=== PATIENT | female | born 1960 | race Caucasian/White ===

== ENCOUNTER 2017-12-09 19:06 | Inpatient (IN) ==
[2017-12-09] MEDS ORDERED: Ipratropium/Albuterol Neb 3 ML IH ONE (19:48)
[2017-12-09] MEDS ORDERED: 0.9 % Sodium Chloride 1,000 ML IVC ONE (19:48)
--- NOTE | 2017-12-09 19:54 | Emergency Department Note ---
Disposition Clinical Impression: Hypokalemia, Hyponatremia Pneumonia Qualifiers: Pneumonia type: due to unspecified organism Laterality: right Lung location: lower lobe of lung Qualified Code(s): J18.1 - Lobar pneumonia, unspecified organism Disposition: Admitted As Inpatient Condition: Good General Adult HPI - General Chief complaint: ED Shortness of Breath/Dyspnea Stated complaint: ANANTH Time Seen by Provider: 12/09/17 19:12 Source: patient Limitations: no limitations Nursing Notes Reviewed: Yes Vital Signs Reviewed: Yes - History of Present Illness HPI Narrative: Patient presents emergency department today for evaluation of right shoulder plain that has been going on for approximately 1 week. Patient presents today to the emergency department for evaluation of shortness breath that started several hours prior to arrival. Patient describes chest pain is worse with inspiration. Her symptoms are similar to previous pneumonia that she had in the past. Patient states that she had a recent had outpatient surgery approximately a month ago. Patient has also had associated nausea without vomiting. Was told that she might have gallbladder problems in the future. She does have associated wheezing to the right side of her chest as well as tenderness to the right upper quadrant of her abdomen. Patient is tachycardic in the 120s on initial evaluation with tachypnea of 28. Patient will undergo further evaluation of right shoulder pain shortness of breath from both a chest pain, infectious, abdominal etiology standpoint. Pain Scale: 10 - Related Data Home Medications Medication Instructions Recorded Confirmed BuPROPion XL (24 HR) [Wellbutrin 300 mg PO HS 03/12/15 10/01/17 Xl] Duloxetine HCl [Cymbalta] 60 mg PO HS 03/12/15 10/01/17 Estrogens, Conjugated [Premarin] 0.625 mg PO QAM 03/12/15 10/01/17 Gabapentin [Neurontin] 300 mg PO HS 03/12/15 10/01/17 L.acidoph,Paracasei, B.lactis 1 cap PO HS 03/12/15 10/01/17 [Probiotic] Montelukast [Singulair] 10 mg PO HS 03/12/15 10/01/17 Omeprazole [PriLOSEC] 20 mg PO HS 03/12/15 10/01/17 Tizanidine HCl [Zanaflex] 4 mg PO BID 03/12/15 10/01/17 Topiramate [Topamax] 50 mg PO QAM 03/12/15 10/01/17 traZODone [TraZODone] 50 mg PO HS 03/12/15 10/01/17 Allergies Allergy/AdvReac Type Severity Reaction Status Date / Time Amoxicillin Allergy See Verified 03/12/15 13:07 Comments sulfamethoxazole Allergy See Verified 03/12/15 13:07 [From Bactrim] Comments trimethoprim [From Bactrim] Allergy See Verified 03/12/15 13:07 Comments Review of Systems: CONSTITUTIONAL: Weakness and fatigue No weight loss, fever, chills HEENT: Eyes: No visual changes. Ears, Nose, Throat: No hearing loss, difficulty talking or unable to swallow. SKIN: No rash or itching. CARDIOVASCULAR: Chest pain described as sharp and radiating to the back to the right shoulder RESPIRATORY: Shortness of breath associated chronic cough without sputum production. GASTROINTESTINAL: Nausea without vomiting GENITOURINARY: No burning on urination or hematuria. NEUROLOGICAL: No headache, dizziness, syncope, paralysis, ataxia, numbness or tingling in the extremities. No change in bowel or bladder control. MUSCULOSKELETAL: No muscle pain, back pain, joint pain or stiffness. Past Medical History - Past Medical History Medical history: Reports: arthritis, GERD, hyperlipidemia, migraine, other Surgical history: Reports: hysterectomy, other Psychiatric history: Reports: anxiety, depression - Social History Smoking Status: Current every day smoker Smokeless Tobacco Status: No Alcohol use: Reports: occasionally Drug use: Reports: none Physical Exam General: Well appearing, nontoxic, no acute distress Head: Normocephalic Atraumatic Eyes: PERRL, EOMI ENT: Airway patent, no stridor Neck: supple, Chest: Wheezing to the right side of her chest Cardiac: Regular rate and rhythm, no murmurs, rubs or gallops Abdomen: soft, moderate tenderness to the right upper quadrant., nondistended; no guarding, rebound, or tenderness to percussion Musculoskeletal: Calves symmetric, nontender, no palpable cord Skin: No rash, normal skin tone Neuro: Alert and Oriented to person, place, and time; No focal deficit - General Limitations: no limitations General appearance: alert, in no apparent distress Course - Reevaluation(s) Reevaluation #1: Agents heart rate has improved with fluids. Chest x-ray concerning for atelectasis but has significant changes associated with her x-ray. This time because of the procedure approximately one month ago and the rather sudden onset of symptoms and her tachycardia we did do a PE study. PCP that he is negative for pulmonary embolism. Does show concern for bronchogenic carcinoma. The patient did start smoking at age 51 secondary to a bad divorce. Patient has no other long history or risk factors. The patient does have an elevated white count and concern for pneumonia. Patient has not had any overnight stays within the hospital within the last 3 months. Ceftriaxone and azithromycin given. A letter ultrasound is negative. Mild white abnormalities. Patient will be admitted for further management and workup. - Consultations Consultation #1: Discussed with hospitalist. Patient except for admission Vital Signs Temperature 99.6 F 12/09/17 19:21 Pulse Rate 117 12/09/17 19:21 Respiratory Rate 22 12/09/17 19:21 Blood Pressure 141/86 12/09/17 19:21 O2 Sat by Pulse Oximetry 98 12/09/17 19:21 Temperature 99.6 F 12/09/17 19:30 Pulse Rate 117 12/09/17 23:00 Respiratory Rate 22 12/09/17 23:00 Blood Pressure 129/90 12/09/17 23:00 O2 Sat by Pulse Oximetry 97 12/09/17 23:00 Oxygen Delivery Oxygen Delivery Room Air Medical Decision Making - Medical Records Medical records reviewed: Yes I reviewed the patient's medical records. - Lab Data Lab results reviewed: Yes I reviewed the patient's lab results. Result diagrams: 12/09/17 19:47 12/09/17 19:47 Lab Results 12/09/17 12/09/17 12/09/17 Range/Units 19:47 19:47 19:47 WBC 18.2 H (4.3-11.1) K/mcL RBC 3.51 L (3.82-4.97) M/mcL Hgb 8.1 L (11.5-15.4) g/dL Hct 26.6 L (35.3-44.9) % MCV 75.8 L (83.0-100.0) fL MCH 23.1 L (28.0-33.3) pg MCHC 30.5 L (31.6-35.5) g/dL RDW 18.6 H (11.5-14.5) % Plt Count 495 H (140-400) K/mcL MPV 8.3 L (9.4-12.4) fL Immature Gran % 0.7 (0-4) % Seg Neutrophils % 77.6 % Lymphocytes % 11.2 % Monocytes % 9.6 % Eosinophils % 0.7 % Basophils % 0.2 % Neutrophils # 14.2 H (1.6-8.9) K/mcL Lymphocytes # 2.1 (0.6-4.6) K/mcL Monocytes # 1.8 H (0.0-1.3) K/mcL Eosinophils # 0.1 (0.0-0.6) K/mcL Basophils # 0.0 (0.0-0.2) K/mcL Sodium 125 L (136-145) mEq/L Potassium 3.1 L (3.5-5.1) mEq/L Chloride 95 L (98-107) mEq/L Carbon Dioxide 18 L (23-29) mEq/L BUN 11 (6-20) mg/dL Creatinine 1.03 (0.60-1.20) mg/dL Est GFR ( Amer) > 60 (> 60) Est GFR (Non-Af Amer) 55 L (> 60) BUN/Creatinine Ratio 11 (6-26) Glucose 114 H (70-105) mg/dL Calculated Osmolality 260 L (280-300) Lactic Acid (0.5-2.2) mmol/L Calcium 8.6 (8.6-10.3) mg/dL Total Bilirubin (0.3-1.0) mg/dL Direct Bilirubin (0.0-0.2) mg/dL Indirect Bilirubin (0.0-1.2) mg/dL AST (13-39) Units/L ALT (7-52) Units/L Alkaline Phosphatase (34-104) Units/L Troponin I < 0.03 (< 0.04) ng/mL B-Natriuretic Peptide 118 H (Less than 100) pg/mL Serum Total Protein (6.4-8.9) g/dL Albumin (3.5-5.7) g/dL Globulin (2.4-3.5) g/dL Albumin/Globulin Ratio (1.1-2.2) Lipase (11-82) Units/L 12/09/17 12/09/17 Range/Units 19:47 20:10 WBC (4.3-11.1) K/mcL RBC (3.82-4.97) M/mcL Hgb (11.5-15.4) g/dL Hct (35.3-44.9) % MCV (83.0-100.0) fL MCH (28.0-33.3) pg MCHC (31.6-35.5) g/dL RDW (11.5-14.5) % Plt Count (140-400) K/mcL MPV (9.4-12.4) fL Immature Gran % (0-4) % Seg Neutrophils % % Lymphocytes % % Monocytes % % Eosinophils % % Basophils % % Neutrophils # (1.6-8.9) K/mcL Lymphocytes # (0.6-4.6) K/mcL Monocytes # (0.0-1.3) K/mcL Eosinophils # (0.0-0.6) K/mcL Basophils # (0.0-0.2) K/mcL Sodium (136-145) mEq/L Potassium (3.5-5.1) mEq/L Chloride (98-107) mEq/L Carbon Dioxide (23-29) mEq/L BUN (6-20) mg/dL Creatinine (0.60-1.20) mg/dL Est GFR ( Amer) (> 60) Est GFR (Non-Af Amer) (> 60) BUN/Creatinine Ratio (6-26) Glucose (70-105) mg/dL Calculated Osmolality (280-300) Lactic Acid 0.7 (0.5-2.2) mmol/L Calcium (8.6-10.3) mg/dL Total Bilirubin 0.3 (0.3-1.0) mg/dL Direct Bilirubin 0.1 (0.0-0.2) mg/dL Indirect Bilirubin 0.2 (0.0-1.2) mg/dL AST 8 L (13-39) Units/L ALT 7 (7-52) Units/L Alkaline Phosphatase 127 H (34-104) Units/L Troponin I (< 0.04) ng/mL B-Natriuretic Peptide (Less than 100) pg/mL Serum Total Protein 6.8 (6.4-8.9) g/dL Albumin 3.5 (3.5-5.7) g/dL Globulin 3.3 (2.4-3.5) g/dL Albumin/Globulin Ratio 1.1 (1.1-2.2) Lipase 3 L (11-82) Units/L - Radiology Data Radiology results reviewed: Yes I reviewed the patient's radiology results. - EKG Data EKG #1 EKG attestation: Yes I reviewed and interpreted this EKG. EKG results narrative: Sinus tachycardia with heart rate of 120. MD interval 151. QRS 91. QTC 436. Patient has no significant ST elevations or depressions.
[2017-12-09 20:07] LABS: Basophils % 0.2 %; Eosinophils # 0.1 K/mcL (0.0-0.6); Eosinophils % 0.7 %; Hematocrit 26.6 % (35.3-44.9); Hemoglobin 8.1 g/dL (11.5-15.4); Immature Granulocytes % 0.7 % (0-4); Lymphocytes # 2.1 K/mcL (0.6-4.6); Lymphocytes % 11.2 %; Mean Corpuscular HGB Conc 30.5 g/dL (31.6-35.5); Mean Corpuscular Hemoglobin 23.1 pg (28.0-33.3); Mean Corpuscular Volume 75.8 fL (83.0-100.0); Mean Platelet Volume 8.3 fL (9.4-12.4); Monocytes # 1.8 K/mcL (0.0-1.3); Monocytes % 9.6 %; Neutrophils # 14.2 K/mcL (1.6-8.9); Platelet Count 495 K/mcL (140-400); Red Blood Count 3.51 M/mcL (3.82-4.97); Red Cell Distribution Width 18.6 % (11.5-14.5); Segmented Neutrophils % 77.6 %
[2017-12-09 20:27] LABS: Albumin 3.5 g/dL (3.5-5.7); Albumin/Globulin Ratio 1.1 (1.1-2.2); Bilirubin,Direct 0.1 mg/dL (0.0-0.2); Bilirubin,Indirect 0.2 mg/dL (0.0-1.2); Bilirubin,Total 0.3 mg/dL (0.3-1.0); Globulin 3.3 g/dL (2.4-3.5); Total Protein 6.8 g/dL (6.4-8.9)
[2017-12-09 20:29] LABS: BUN/Creatinine Ratio 11 (6-26); Blood Urea Nitrogen 11 mg/dL (6-20); Calcium 8.6 mg/dL (8.6-10.3); Carbon Dioxide 18 mEq/L (23-29); Chloride 95 mEq/L (98-107); Glucose 114 mg/dL (70-105); Osmolality,Calculated 260 (280-300); Potassium 3.1 mEq/L (3.5-5.1); Sodium 125 mEq/L (136-145); Troponin I < 0.03 ng/mL (< 0.04); eGFR For Non-African Americans 55 (> 60)
[2017-12-09] MEDS ORDERED: Isovue-370 500 ML INFUS..BTL IV ONE (20:48)
[2017-12-09] MEDS ORDERED: cefTRIAXone 1,000 MG in Water for inj. (sterile) 20 ML 10 ML IVP STA (22:24)
[2017-12-09] MEDS ORDERED: Azithromycin 500 MG in D5% in Water 250 ML IVPB STA (22:24)
[2017-12-09] MEDS ORDERED: *HR* LORazepam 2 MG/ML VIAL IVP ONE (23:48)
[2017-12-10] MEDS ORDERED: Naloxone 0.4 MG/ML INJ IVP PRN (02:29)
[2017-12-10] MEDS ORDERED: Ipratropium/Albuterol Neb 3 ML IH PRN (03:08)
--- NOTE | 2017-12-10 03:21 | Internal Med History&Physical ---
Date of Encounter: 12/10/17 Time of Encounter: 01:45 Internal Medicine - H&P: HPI Chief complaint: Pneumonia, bronchiogenic carcinoma Admitted From: Emergency Dept Plans for Post Hospital Care: Home History of present illness: Ms. Dhillon is a 57 year old female Patient presented to the ER with a 1 week history of right shoulder pain with inhalation. She states that she also developed some right upper quadrant pain as well. She says that this pain is similar to pain she had a few years ago when she was diagnosed with pneumonia. She has a history of chronic pain and multiple back surgeries and has a morphine pain pump in place. Despite this, patient's pain continued and she came to the emergency room for further evaluation. In the emergency room patient's CBC showed a white count of 18.2, hemoglobin of 8.1 BMP showed a sodium of 125, potassium 3.1. Patient's lactate was 0.7 and troponins were undetectable. Chest x-ray showed right and middle lobe opacities and possible developing pneumonia. 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 Due to her right upper quadrant pain a gallbladder ultrasound was performed which revealed sludge in the gallbladder. Blood cultures were drawn and she was started on ceftriaxone and azithromycin. She is also given 1 L bolus of IV fluids and admitted to the hospital for further management. Upon my assessment patient has difficulty with deep inhalation as it causes her pain. She states that she recently started smoking about 6 years ago but is now motivated to quit. She has had nausea and vomiting particularly with eating , chest pain with inhalation as well as pain in her right upper quadrant. She denies diarrhea and constipation. Past Med Surg Social Fam HX - Past Medical History Medical history: arthritis, GERD, hyperlipidemia, migraine, other Additional medical history: STARTED SMOKING CIGARETTES @51 YRS OLD (STATES "[employer]"). DAILY MARIJUANA. HOLA. PUD. Vasculitis. H Pylori Gastritis. 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 Anxiety. Depression. Gluten allergy. Pneu Psychiatric history: anxiety, depression - Past Surgical History Surgical History: hysterectomy, other Additional surgical history: Gastric Bypass 2003. Hysterectomy and tummy tuck 2005. breast lifted 2005. skin removed 2005. left ear sx 2005. back surgery. 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 back sx L4-L5 with screws/plate and then removed 2010. bladder 2010. pain pump 2012. back sx 2012 - Social History Smoking Status: Current every day smoker Smokeless Tobacco Status: No Alcohol use: occasionally Drug use: none - Family History Mother Living Status: Hx Family Cardiac Disorders: Yes Hx Family Respiratory Disorders: No Hx Family Cancer: Yes (skin) Hx Family GI Disorders: Yes Hx Family Endocrine Disorder: Yes Hx Family Neuromuscular Disorders: No Hx Family Neurologic Disorders: Yes Hx Family HEENT Disorders: No Hx Family Autoimmune Disorders: No Father Living Status: Still Living Hx Family Cardiac Disorders: Yes Hx Family Respiratory Disorders: No Hx Family Cancer: Yes (Prostate and skin ca) Hx Family GI Disorders: No Hx Family Endocrine Disorder: No Hx Family Neuromuscular Disorders: No Hx Family HEENT Disorders: No Hx Family Autoimmune Disorders: No Internal Medicine - H&P: Meds BuPROPion XL (24 HR) [Wellbutrin Xl] 300 mg PO HS 03/12/15 [History] Duloxetine HCl [Cymbalta] 60 mg PO HS 03/12/15 [History] Estrogens, Conjugated [Premarin] 0.625 mg PO QAM 03/12/15 [History] Gabapentin [Neurontin] 300 mg PO HS 03/12/15 [History] L.acidoph,Paracasei, B.lactis [Probiotic] 1 cap PO HS 03/12/15 [History] Montelukast [Singulair] 10 mg PO HS 03/12/15 [History] Omeprazole [PriLOSEC] 20 mg PO HS 03/12/15 [History] Tizanidine HCl [Zanaflex] 4 mg PO BID 03/12/15 [History] Topiramate [Topamax] 50 mg PO QAM 03/12/15 [History] traZODone [TraZODone] 50 mg PO HS 03/12/15 [History] 3 Allergy/AdvReac Type Severity Reaction Status Date / Time Amoxicillin Allergy See Verified 03/12/15 13:07 Comments sulfamethoxazole Allergy See Verified 03/12/15 13:07 [From Bactrim] Comments trimethoprim [From Bactrim] Allergy See Verified 03/12/15 13:07 Comments All Systems PM: A 10-system review of systems was performed and is negative for pertinent findings except as documented above in the HPI. - Constitutional Vitals: Temp Pulse Resp BP Pulse Ox 98.8 F 123 18 133/86 97 12/10/17 00:30 12/10/17 00:30 12/10/17 00:30 12/10/17 00:30 12/10/17 00:30 General appearance: Present: cooperative, mild distress, A&O X 3, answers questions appropriately Exam: As above - Head Head exam: Present: normal inspection - Eye Eye exam: Present: EOMI, normal appearance - Respiratory Respiratory exam: Present: rales. Absent: chest wall tenderness, decreased breath sounds, CTAB, wheezes Additional comments: Patient unable to take deep breaths due to pain - Cardiovascular Cardiovascular exam: Present: RRR, tachycardia. Absent: diastolic murmur, systolic murmur - GI/Abdominal GI/Abdominal exam: Present: normal bowel sounds, soft, tenderness Additional comments: Right upper quadrant tenderness - Extremities Exam Extremities exam: Present: warm, radial pulses palpable and symmetrical. Absent : calf tenderness, pedal edema, tenderness - Neurological Exam Neurological exam: Present: no focal deficits, strengths equal and symetr throughout. 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 Patient has difficulty with deep inspiration and physical exam was difficult due to pain. Continue to monitor oxygen status Continue ceftriaxone and azithromycin Follow up blood cultures Pulmonary consult in AM, appreciate recommendations. Qualifiers: Laterality: right Lung location: middle lobe of lung Qualified Code(s): J18.1 - Lobar pneumonia, unspecified organism (2) Lung mass Current Visit: Yes Status: Acute Assessment and plan: As seen on patient's CT angio, patient has concerning primary bronchogenic carcinoma at right hilum. Pulmonary consult in AM, appreciate recommendations. Treating for pneumonia as above. (3) Anemia Current Visit: Yes Status: Acute Assessment and plan: Patient's hemoglobin was 8.1 in the ER, previously in September her hemoglobin was 8.6. Patient denies history of anemia. No obvious signs of bleeding. Iron studies Type and screen Transfuse if patient's hemoglobin continues to drop. Repeat labs in AM. Qualifiers: Anemia type: unspecified type Qualified Code(s): D64.9 - Anemia, unspecified (4) Sludge in gallbladder Current Visit: Yes Status: Acute Assessment and plan: As seen on ultrasound. Patient has right upper quadrant pain, but during exam with ultrasound she did not demonstrate positive Steinberg's sign. Patient states that pain would be worse with eating. Could be related to cholecystitis. Continue to monitor Consider surgery consult once evaluated by pulmonology for her lung mass. NPO (5) Dyspnea Current Visit: No Status: Resolved Assessment and plan: Likely secondary to lung mass and pneumonia. Bedside pulse ox Oxygen supplementation as needed. Qualifiers: Dyspnea type: shortness of breath Qualified Code(s): R06.02 - Shortness of breath; R06.00 - Dyspnea, unspecified; R06.01 - Orthopnea (6) Chronic pain Current Visit: No Status: Chronic Assessment and plan: Patient has a morphine pain pump. Qualifiers: Chronic pain type: other chronic postprocedural pain Qualified Code(s): G89.28 - Other chronic postprocedural pain (7) Tobacco abuse Current Visit: No Status: Resolved Assessment and plan: Patent states that she is motivated to quit. Declined nicotine patch. (8) Hypokalemia Current Visit: Yes Status: Acute Assessment and plan: Supplement with 40mEq of KCl Recheck labs in AM. (9) Hyponatremia Current Visit: Yes Status: Acute Assessment and plan: Patient received dose of IV fluids in ER. Recheck labs in the morning Will monitor to ensure not to raise sodium too quickly. (10) DVT prophylaxis Current Visit: Yes Status: Acute Assessment and plan: SCDs - Time Spent With Patient Total time spent is greater than 50% in coordination of care (as documented) at patient's floor/unit and/or counseling patient: Greater than 35 minutes
[2017-12-10] MEDS ORDERED: Potassium Chloride 40 MEQ, Lidocaine 1% 2 ML in D5% in Water 500 ML IVPB ONE (03:30)
[2017-12-10 05:51] LABS: Hematocrit 25.5 % (35.3-44.9); Hemoglobin 7.9 g/dL (11.5-15.4); Mean Corpuscular Hemoglobin 23.4 pg (28.0-33.3); Mean Corpuscular Volume 75.4 fL (83.0-100.0); Mean Platelet Volume 8.2 fL (9.4-12.4); Platelet Count 455 K/mcL (140-400); Red Blood Count 3.38 M/mcL (3.82-4.97); Red Cell Distribution Width 18.5 % (11.5-14.5)
[2017-12-10 06:10] LABS: BUN/Creatinine Ratio 8 (6-26); Blood Urea Nitrogen 6 mg/dL (6-20); Calcium 8.4 mg/dL (8.6-10.3); Carbon Dioxide 23 mEq/L (23-29); Chloride 97 mEq/L (98-107); Glucose 153 mg/dL (70-105); Osmolality,Calculated 267 (280-300); Potassium 3.5 mEq/L (3.5-5.1); Sodium 128 mEq/L (136-145); eGFR For Non-African Americans > 60 (> 60)
--- NOTE | 2017-12-10 06:46 | Pulmonology Consult Note ---
Date of Encounter: 12/10/17 Time of Encounter: 06:45 Assessment and Plan (1) Pneumonia Current Visit: Yes Status: Acute I would treat for community acquired organisms send sputum and blood cultures and obtain urine Legionella and strep pneumo antigen along with a respiratory infection panel Schedule bronchodilators (duo nebs) every 6 hours with every hourly albuterol as needed IV steroids Solu-Medrol 40 mg every 8 for the next 24-48 hours Plan for treatment for antimicrobials seven-day days based upon clinical response Qualifiers: Pneumonia type: due to unspecified organism Laterality: right Lung location: unspecified part of lung Qualified Code(s): J18.9 - Pneumonia, unspecified organism (2) Chronic pain Current Visit: No Status: Chronic Patient has acute on chronic pain in large part pleuritic chest pain related to pneumonia also suffers from chronic back pain I given her a one-time dose of narcotic and she says she responds to acetaminophen as well which for to primary team for management of this and also rechallenge to her primary pain physician to give recommendations for pain pump Qualifiers: Chronic pain type: other chronic postprocedural pain Qualified Code(s): G89.28 - Other chronic postprocedural pain (3) Lung mass Current Visit: Yes Status: Acute This is concerning for primary lung met malignancy I would favor treating pneumonia over the weekend if patient remains in patient over the weekend as she could likely be a candidate for bronchoscopy with endobronchial ultrasound in the early part of this upcoming week given how short of breath she is how much pain and tachycardic she is not an ideal candidate at this time (4) Tachycardia Current Visit: Yes Status: Acute This is multifactorial and appears sinus secondary to pain anxiety and infection. Treat pain and anxiety as above and given a 1 time bolus of lactated Ringer's. Continue to monitor on telemetry Thank you for the consultation pulmonary will continue to follow (5) Tobacco abuse Current Visit: No Status: Resolved Tobacco cessation counseling given (6) DVT prophylaxis Current Visit: Yes Status: Acute Chemical DVT prophylaxis unless contraindication arises History of Present Illness Consult date: 12/10/17 Requesting physician: Modesto Carlson Reason for consult: abnormal CXR/CT Chief complaint: Difficulty in Breathing History of present illness: This is a pleasant 57-year-old woman who presented to emergency room yesterday for shoulder pain for approximately a week Joses developed shortness of breath that started a few hours prior to arrival along with chest pain and pleuritic type chest pain that is worse with inspiration. She has had pneumonia in the past and is similar symptoms she experienced previously. She was then noted to be tachycardic to the 120s and tachypnea Greater than 26 in the emergency room the patient had a CTA performed in the emergency room which was negative for filling defect but there was a confluent soft tissue opacity at the right hilum contiguous with airspace disease in the middle lobe and right lower lobe secondary to occlusion of the airways this was all concerning for bronchogenic carcinoma in the pulmonary service was consulted for further evaluation of this. Patient is a current smoker but says she started smoking at age of 51 after a difficult divorce she smoked up to 2 packs a day and now is down to 1 no family history of lung malignancy no personal history of cancer in any form. 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 Complaining again of the shoulder pain with very severe difficulty with inspiration especially when she is trying to urinate noted to be tachycardic the 120s although sinus today blood pressure is been stable She does suffer from chronic back pain and some number of surgeries in the past for this fact has an indwelling pain pump. Past Med Surg Social Fam HX - Past Medical History Medical history: arthritis, GERD, hyperlipidemia, migraine, other Additional medical history: STARTED SMOKING CIGARETTES @51 YRS OLD (STATES "BAD DIVORCE"). DAILY MARIJUANA. HOLA. PUD. Vasculitis. H Pylori Gastritis. 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 Anxiety. Depression. Gluten allergy. Pneu Psychiatric history: anxiety, depression - Past Surgical History Surgical History: hysterectomy, other Additional surgical history: Gastric Bypass 2004. Hysterectomy and tummy tuck 2006. breast lifted 2005. skin removed 2005. left ear sx 2005. back surgery. 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 back sx L4-L5 with screws/plate and then removed 2010. bladder 2010. pain pump 2012. back sx 2012 - Social History Smoking Status: Current every day smoker Smokeless Tobacco Status: No Alcohol use: occasionally Drug use: none - Family History Mother Living Status: Hx Family Cardiac Disorders: Yes Hx Family Respiratory Disorders: No Hx Family Cancer: Yes (skin) Hx Family GI Disorders: Yes Hx Family Endocrine Disorder: Yes Hx Family Neuromuscular Disorders: No Hx Family Neurologic Disorders: Yes Hx Family HEENT Disorders: No Hx Family Autoimmune Disorders: No Father Living Status: Still Living Hx Family Cardiac Disorders: Yes Hx Family Respiratory Disorders: No Hx Family Cancer: Yes (Prostate and skin ca) Hx Family GI Disorders: No Hx Family Endocrine Disorder: No Hx Family Neuromuscular Disorders: No Hx Family HEENT Disorders: No Hx Family Autoimmune Disorders: No Medications and Allergies BuPROPion XL (24 HR) [Wellbutrin Xl] 300 mg PO HS 03/12/15 [History] Duloxetine HCl [Cymbalta] 60 mg PO HS 03/12/15 [History] Estrogens, Conjugated [Premarin] 0.625 mg PO QAM 03/12/15 [History] Gabapentin [Neurontin] 300 mg PO HS 03/12/15 [History] L.acidoph,Paracasei, B.lactis [Probiotic] 1 cap PO HS 03/12/15 [History] Montelukast [Singulair] 10 mg PO HS 03/12/15 [History] Omeprazole [PriLOSEC] 20 mg PO HS 03/12/15 [History] Tizanidine HCl [Zanaflex] 4 mg PO BID 03/12/15 [History] Topiramate [Topamax] 50 mg PO QAM 03/12/15 [History] traZODone [TraZODone] 50 mg PO HS 03/12/15 [History] DULoxetine [Cymbalta] 30 mg PO QAM 12/10/17 [History] Morphine Sulfate/Pf [Morphine IntraThecdal Pump] 7.2 mg IT DAILY 12/10/17 [ History] 3 Allergy/AdvReac Type Severity Reaction Status Date / Time Amoxicillin Allergy See Verified 03/12/15 13:07 Comments sulfamethoxazole Allergy See Verified 03/12/15 13:07 [From Bactrim] Comments trimethoprim [From Bactrim] Allergy See Verified 03/12/15 13:07 Comments All Systems: The remainder of the systems were reviewed and are negative Physical Examination Vital Signs: Vital Signs, Last 4 Hours Temp Pulse Resp BP Pulse Ox 12/10/17 04:35 99.2 F 128 14 144/85 96 General appearance: appears uncomfortable Eyes: nonicteric ENT: oropharynx moist Effort: mildly labored Auscultation: bilateral: diminished breath sounds, wheezes (Faint expiratory wheezes) Cardiovascular: other (Heart rapid rate regular rhythm) Gastrointestinal: normoactive bowel sounds, soft, other (Mild tenderness to deep palpation over the epigastrium) Integumentary: normal Extremities: no cyanosis, no edema Musculoskeletal: no deformities normal mental status, non-focal exam anxious Results - Laboratory Findings CBC and BMP: 12/10/17 05:35 12/10/17 05:35 Abnormal lab findings: Abnormal lab results WBC 16.6 K/mcL (4.3-11.1) H 12/10/17 05:35 RBC 3.38 M/mcL (3.82-4.97) L 12/10/17 05:35 Hgb 7.9 g/dL (11.5-15.4) L 12/10/17 05:35 Hct 25.5 % (35.3-44.9) L 12/10/17 05:35 MCV 75.4 fL (83.0-100.0) L 12/10/17 05:35 MCH 23.4 pg (28.0-33.3) L 12/10/17 05:35 MCHC 31.0 g/dL (31.6-35.5) L 12/10/17 05:35 RDW 18.5 % (11.5-14.5) H 12/10/17 05:35 Plt Count 455 K/mcL (140-400) H 12/10/17 05:35 MPV 8.2 fL (9.4-12.4) L 12/10/17 05:35 Neutrophils # 14.2 K/mcL (1.6-8.9) H 12/09/17 19:47 Monocytes # 1.8 K/mcL (0.0-1.3) H 12/09/17 19:47 Sodium 128 mEq/L (136-145) L 12/10/17 05:35 Chloride 97 mEq/L (98-107) L 12/10/17 05:35 Glucose 153 mg/dL (70-105) H 12/10/17 05:35 POC Glucose 176 mg/dL (70-99) H 12/10/17 05:24 Calculated Osmolality 267 (280-300) L 12/10/17 05:35 Calcium 8.4 mg/dL (8.6-10.3) L 12/10/17 05:35 AST 8 Units/L (13-39) L 12/09/17 19:47 Alkaline Phosphatase 127 Units/L (34-104) H 12/09/17 19:47 B-Natriuretic Peptide 118 pg/mL (Less than 100) H 12/09/17 19:47 Lipase 3 Units/L (11-82) L 12/09/17 19:47 - Diagnostic Findings Chest x-ray: report reviewed, image reviewed CT scan - chest: report reviewed (CTA of the chest), image reviewed - Clinical Findings Intake & Output: Intake & Output 12/09/17 12/09/17 12/10/17 15:59 23:59 07:59 Intake Total 0 / 0 Output Total 400 / 400 Balance -400 / -400 Weight 89.1 kg Consult Discharge Plan - Plan Referrals: Jorden Crandall MD [Primary Care Provider] -
[2017-12-10 07:07] LABS: Ferritin 47 ng/mL (10-120); Iron < 10 mcg/dL (50-170); Transferrin 268 mg/dL (203-362)
[2017-12-10] MEDS: cefTRIAXone 1,000 MG in Water for inj. (sterile) 20 ML 10 ML IVP SCH (07:46)
[2017-12-10] MEDS ORDERED: Ringers Solution, Lactated 1,000 ML IVC ONE (08:24)
[2017-12-10] MEDS ORDERED: Isovue-370 500 ML INFUS..BTL IV ONE (09:11)
--- NOTE | 2017-12-10 09:17 | Internal Med Progress Note ---
Hospitalist Progress Note - Encounter Date of Encounter: 12/10/17 Time of Encounter: 08:10 - Subjective Interval History: Patient complain of right-sided chest pain with taking deep breath or cough, patient complain of diffuse abdominal discomfort more at right lower quadrant area to the extent she cannot take a deep breath. Patient denies any fever or chills, patient denies any nausea or vomiting - Exam Vitals: Temp Pulse Resp BP Pulse Ox 99.8 F H 128 24 150/92 96 12/10/17 07:02 12/10/17 07:02 12/10/17 07:02 12/10/17 07:02 12/10/17 07:02 Exam: Lower extremities No lower extremity edema, no calf tenderness [facility] [place] No spine tenderness, moving all 4 extremities Neurological cranial nerves II-12 grossly intact no focal motor or sensory deficits As above - Summary of Assessment and Plan Summary of Assessment and Plan: With her severe abdominal pain we will order CAT scan abdomen and pelvis rule out any abdominal abscess, with her pleurisy chest pain will add 1 dose of steroid 125 mg then Soluo Medrol 40 mg twice a day . Based on pain management clinic continue morphine pump for now, patient is tachycardic will order 1 L bolus and then IV fluid, with her hyponatremia could be paraneoplastic syndrome. Check serum sodium and serum osmolarity, check urine sodium urine severity, possible secondary to volume depletion with her decrease oral intake, continue IV fluid. Patient is on multiple is SSRI which could be contributing to her hyponatremia . Close monitoring of her sodium, with a aerosol treatment every 4 hours, add Mucinex, check electrolytes next morning, replace phosphorus. Patient has evidence of iron deficiency anemia and anemia of chronic disease, add iron - Time Spent with Patient Total time spent is greater than 50% in coordination of care (as documented) at patient's floor/unit and/or counseling patient: Greater than 35 minutes Plan of Care Discussed with: nurse (Plan discussed was family patient and nurse) Internal Medicine: Result - Labs CBC & Chem 7: 12/10/17 05:35 12/10/17 05:35 Labs: Short CBC 12/10/17 Range/Units 05:35 WBC 16.6 H (4.3-11.1) K/mcL Hgb 7.9 L (11.5-15.4) g/dL Hct 25.5 L (35.3-44.9) % Plt Count 455 H (140-400) K/mcL BMP 12/10/17 05:35 Sodium 128 L Potassium 3.5 Chloride 97 L Carbon Dioxide 23 BUN 6 Creatinine 0.71 Glucose 153 H Calcium 8.4 L Consult Discharge Plan - Plan Referrals: Jorden Crandall MD [Primary Care Provider] - Exam - Vital Signs Vital signs: Initial Vital Signs Temp Pulse Resp BP Pulse Ox 99.6 F 117 22 141/86 98 12/09/17 19:21 12/09/17 19:21 12/09/17 19:21 12/09/17 19:21 12/09/17 19:21 Vital Signs - Last 8 Hours Temp Pulse Resp BP Pulse Ox 12/10/17 11:21 18 95 12/10/17 11:13 98.4 F 117 20 146/85 96 Intake and Output 12/09/17 12/10/17 12/10/17 23:59 07:59 15:59 Other: Meal NPO - General Appearance General appearance: moderate distress EENT: mucous membranes dry Neck: no JVD Cardiology: no murmurs, no rub, no gallops, no edema, rapid rhythm, normal S1, normal S2 Gastrointestinal: normoactive bowel sounds, tenderness (Diffuse abdominal tenderness more at the epigastric area and right upper quadrant area) Neurologic: no focal deficit, no asterixis, alert and oriented x3, reflexes 2+ and symmetric, gait normal, strength 5/5
[2017-12-10 09:21] LABS: Magnesium 1.9 mg/dL (1.6-2.6); Phosphorous 2.6 mg/dL (2.7-4.5)
[2017-12-10] MEDS: Acetaminophen 325 MG TABLET PO PRN ×2 (09:23→15:00)
[2017-12-10 09:46] LABS: Folate 8.3 ng/mL (3.0-16.0)
[2017-12-10] MEDS ORDERED: ISOVUE-370 100 ML INFUS..BTL PO ONE (09:57)
[2017-12-10] MEDS ORDERED: methylPREDNISolone 125 MG/2 ML VIAL IVP ONE (10:30)
[2017-12-10] MEDS: Ipratropium/Albuterol Neb 3 ML IH SCH ×4 (11:18→23:18)
[2017-12-10] MEDS: 0.9 % Sodium Chloride 1,000 ML IVC SCH ×2 (11:53→21:33)
[2017-12-10] MEDS: MethylPREDNISolone 40 MG/ML VIAL IVP SCH (18:00)
[2017-12-10] MEDS ORDERED: BuPROPion XL (24 HR) 150 MG TABLET PO SCH (21:00)
[2017-12-10] MEDS: Gabapentin 300 MG CAPSULE PO SCH (21:34)
[2017-12-10] MEDS: traZODone 50 MG TABLET PO SCH (21:35)
[2017-12-10] MEDS: tiZANidine 4 MG TABLET PO SCH (21:35)
[2017-12-10] MEDS: Azithromycin 500 MG in D5% in Water 250 ML IVPB SCH (23:51)
[2017-12-11] MEDS: Acetaminophen 325 MG TABLET PO PRN ×3 (03:00→16:17)
[2017-12-11] MEDS: Ipratropium/Albuterol Neb 3 ML IH SCH ×6 (04:11→23:46)
[2017-12-11] MEDS: MethylPREDNISolone 40 MG/ML VIAL IVP SCH ×2 (05:53→17:51)
[2017-12-11] MEDS: 0.9 % Sodium Chloride 1,000 ML IVC SCH ×3 (08:05→16:17)
[2017-12-11] MEDS: cefTRIAXone 1,000 MG in Water for inj. (sterile) 20 ML 10 ML IVP SCH (09:16)
[2017-12-11] MEDS: tiZANidine 4 MG TABLET PO SCH ×2 (09:17→21:16)
[2017-12-11] MEDS: Topiramate 25 MG TABLET PO SCH (09:18)
[2017-12-11] MEDS: MORPHINE SULFATE IT SCH (09:22)
[2017-12-11 09:59] LABS: Basophils % 0.1 %; Hematocrit 24.5 % (35.3-44.9); Hemoglobin 7.5 g/dL (11.5-15.4); Immature Granulocytes % 1.6 % (0-4); Lymphocytes # 1.1 K/mcL (0.6-4.6); Lymphocytes % 6.2 %; Mean Corpuscular HGB Conc 30.6 g/dL (31.6-35.5); Mean Corpuscular Hemoglobin 23.4 pg (28.0-33.3); Mean Corpuscular Volume 76.6 fL (83.0-100.0); Mean Platelet Volume 8.6 fL (9.4-12.4); Monocytes # 0.7 K/mcL (0.0-1.3); Neutrophils # 15.9 K/mcL (1.6-8.9); Nucleated Red Blood Cells 0.1 /100 WBC (0); Platelet Count 492 K/mcL (140-400); Red Cell Distribution Width 18.5 % (11.5-14.5); Segmented Neutrophils % 88.1 %
[2017-12-11 10:27] LABS: Alanine Aminotransferase 5 Units/L (7-52); Albumin 2.9 g/dL (3.5-5.7); Alkaline Phosphatase 108 Units/L (34-104); Amylase < 10 Units/L (29-103); Aspartate Amino Transferase 5 Units/L (13-39); BUN/Creatinine Ratio 14 (6-26); Bilirubin,Total 0.2 mg/dL (0.3-1.0); Blood Urea Nitrogen 9 mg/dL (6-20); Calcium 8.6 mg/dL (8.6-10.3); Carbon Dioxide 23 mEq/L (23-29); Chloride 99 mEq/L (98-107); Glucose 200 mg/dL (70-105); Lipase < 3 Units/L (11-82); Magnesium 1.9 mg/dL (1.6-2.6); Osmolality,Calculated 270 (280-300); Phosphorous 2.7 mg/dL (2.7-4.5); Potassium 3.3 mEq/L (3.5-5.1); Sodium 128 mEq/L (136-145); Total Protein 5.9 g/dL (6.4-8.9); eGFR For Non-African Americans > 60 (> 60)
--- NOTE | 2017-12-11 10:58 | Internal Med Progress Note ---
Hospitalist Progress Note - Encounter Date of Encounter: 12/11/17 Time of Encounter: 09:20 - Exam Vitals: Temp Pulse Resp BP Pulse Ox 97.5 F L 103 16 127/82 95 12/11/17 07:23 12/11/17 07:23 12/11/17 07:23 12/11/17 07:23 12/11/17 07:23 Exam: as above - Assessment and Plan (1) Mass of adrenal gland Current Visit: Yes Status: Acute (2) Hypokalemia Current Visit: Yes Status: Acute (3) Hyponatremia Current Visit: Yes Status: Acute (4) Pneumonia Current Visit: Yes Status: Acute (5) Tachycardia Current Visit: Yes Status: Acute (6) Community acquired pneumonia Current Visit: No Status: Acute - Summary of Assessment and Plan Summary of Assessment and Plan: Patient has hyponatremia, discussed with patient patient is drinking 5 L of water daily, counseling patient about hyponatremia and risk of seizure , counseling about water restriction to 1500 mL/daily , counseling about Cymbalta which patient is taking only for pain management which was started recently, We will cut back the dose, counseling about risk and benefit, counseling about SSRI causing hyponatremia.will replace electrolytes , counselling on High protien diet , counselling on follow up with endocrinology as OP , awaiting FOBT , continue PPI , monitor H/H add another dose of iron - Time Spent with Patient Total time spent is greater than 50% in coordination of care (as documented) at patient's floor/unit and/or counseling patient: Greater than 35 minutes Internal Medicine: Result - Labs CBC & Chem 7: 12/11/17 09:37 12/11/17 09:37 Labs: Short CBC 12/11/17 Range/Units 09:37 WBC 18.0 H (4.3-11.1) K/mcL Hgb 7.5 L (11.5-15.4) g/dL Hct 24.5 L (35.3-44.9) % Plt Count 492 H (140-400) K/mcL Neutrophils # 15.9 H (1.6-8.9) K/mcL BMP 12/11/17 09:37 Sodium 128 L Potassium 3.3 L Chloride 99 Carbon Dioxide 23 BUN 9 Creatinine 0.65 Glucose 200 H Calcium 8.6 Liver Function 12/11/17 Range/Units 09:37 Total Bilirubin 0.2 L (0.3-1.0) mg/dL AST 5 L (13-39) Units/L ALT 5 L (7-52) Units/L Alkaline Phosphatase 108 H (34-104) Units/L Albumin 2.9 L (3.5-5.7) g/dL - Impressions Impressions Abdomen/Pelvis CT 12/10/17 13:00 IMPRESSION: Stable right hilar mass likely secondary to malignancy with developing right-sided pleural effusion and consolidation within the right lower lobe may be secondary to postobstructive pneumonia. 1.3 cm mass seen within the left adrenal gland may represent an adenoma however cannot exclude the possibility of malignancy. D/ / 12/10/2017 13:44:14 En Altman MD / tree Interpreting Provider: En Altman MD Consult Discharge Plan - Plan Referrals: Jorden Crandall MD [Primary Care Provider] - Exam - Vital Signs Vital signs: Initial Vital Signs Temp Pulse Resp BP Pulse Ox 99.6 F 117 22 141/86 98 12/09/17 19:21 12/09/17 19:21 12/09/17 19:21 12/09/17 19:21 12/09/17 19:21 Vital Signs - Last 8 Hours Temp Pulse Resp BP Pulse Ox 12/11/17 07:23 97.5 F L 103 16 127/82 95 12/11/17 04:11 16 94 12/11/17 03:34 98.3 F 99 16 128/81 94 Intake and Output 12/10/17 12/11/17 12/11/17 23:59 07:59 15:59 Intake Total 1000 / 1000 650 / 650 2842 / 2842 Output Total 0 / 0 Balance 1000 / 1000 650 / 650 2842 / 2842 Intake: IV Fluids 1000 / 1000 250 / 250 2792 / 2792 0.9 % Sodium Chloride 1,000 ML 1000 / 1000 1000 / 1000 @ 125 mls/hr IVC .Q8H [facility] Rx#: [id number] Rocephin 1,000 MG In Water for 20 / 20 inj. (sterile) 10 ML @ 600 mls/ hr IVP DAILY [facility] Rx#:[id number] Zithromax 500 mg In Dextrose 5% 250 / 250 250 ML @ 252 mls/hr IVPB Q24H [facility] Rx#:[id number] Oral 0 / 0 400 / 400 50 / 50 Output: Urine 0 / 0 Other: Meal Breakfast Percent of Meal Consumed 20% # Voids 1 1 Weight 90.3 kg Patient Weight 12/11/17 23:59 Weight 90.3 kg - General Appearance General appearance: chronically ill EENT: mucous membranes moist Neck: no JVD Respiratory: wheezing, rales (rales bilateral lung bases.) Cardiology: no rub, no gallops, regular rate, regular rhythm, normal S1, normal S2 Gastrointestinal: normoactive bowel sounds, no masses Integumentary: no rash, warm and dry Neurologic: no focal deficit, no asterixis, alert and oriented x3, reflexes 2+ and symmetric, gait normal, strength 5/5, CN 3-12 intact Musculoskeletal: no deformities, no erythema, no cyanosis, no clubbing Additional Comments: so sleepy (4) Pneumonia Qualifiers: Pneumonia type: due to unspecified organism Laterality: right Lung location : unspecified part of lung Qualified Code(s): J18.9 - Pneumonia, unspecified organism (6) Community acquired pneumonia Qualifiers: Laterality: right Lung location: middle lobe of lung Qualified Code(s): J18.1 - Lobar pneumonia, unspecified organism
[2017-12-11] MEDS ORDERED: Iron Sucrose Complex 200 MG in 0.9 % Sodium Chloride 100 ML IVPB ONE (11:15)
--- NOTE | 2017-12-11 11:45 | Pulmonology Progress Note ---
Date of Encounter: 12/11/17 Time of Encounter: 11:40 Assessment and Plan (1) Pneumonia Current Visit: Yes Status: Acute To continue the current regimen of antibiotics . Qualifiers: Pneumonia type: due to unspecified organism Laterality: right Lung location: unspecified part of lung Qualified Code(s): J18.9 - Pneumonia, unspecified organism (2) Hilar mass Current Visit: Yes Status: Acute Patient will need EBUS to biopsy of right hilar mass more likely consistent with primary bronchogenic carcinoma .If she is getting better clinically we might put her on schedule on Wednesday . Subjective Principal diagnosis: Pneumonia with hilar mass Interval history: Is doing well feeling better , less shortness of breadth not much cough with sputum production. Objective PUL Vital signs: Last Vital Signs Temp 97.5 F L 12/11/17 07:23 Pulse 103 12/11/17 07:23 Resp 16 12/11/17 07:23 BP 127/82 12/11/17 07:23 Pulse Ox 95 12/11/17 07:23 Auscultation: bilateral: diminished breath sounds (basilar diminshed breadth sounds ) Results - Laboratory Findings CBC and BMP: 12/11/17 09:37 12/11/17 09:37 Abnormal lab findings: Abnormal lab results WBC 18.0 K/mcL (4.3-11.1) H 12/11/17 09:37 RBC 3.20 M/mcL (3.82-4.97) L 12/11/17 09:37 Hgb 7.5 g/dL (11.5-15.4) L 12/11/17 09:37 Hct 24.5 % (35.3-44.9) L 12/11/17 09:37 MCV 76.6 fL (83.0-100.0) L 12/11/17 09:37 MCH 23.4 pg (28.0-33.3) L 12/11/17 09:37 MCHC 30.6 g/dL (31.6-35.5) L 12/11/17 09:37 RDW 18.5 % (11.5-14.5) H 12/11/17 09:37 Plt Count 492 K/mcL (140-400) H 12/11/17 09:37 MPV 8.6 fL (9.4-12.4) L 12/11/17 09:37 Neutrophils # 15.9 K/mcL (1.6-8.9) H 12/11/17 09:37 Nucleated RBCs/100 WBC 0.1 /100 WBC (0) H 12/11/17 09:37 Sodium 128 mEq/L (136-145) L 12/11/17 09:37 Potassium 3.3 mEq/L (3.5-5.1) L 12/11/17 09:37 Glucose 200 mg/dL (70-105) H 12/11/17 09:37 POC Glucose 176 mg/dL (70-99) H 12/10/17 05:24 Serum Osmolality 270 mOsm/kg (280-300) L 12/10/17 08:06 Calculated Osmolality 270 (280-300) L 12/11/17 09:37 Iron < 10 mcg/dL (50-170) L 12/10/17 05:35 Total Bilirubin 0.2 mg/dL (0.3-1.0) L 12/11/17 09:37 AST 5 Units/L (13-39) L 12/11/17 09:37 ALT 5 Units/L (7-52) L 12/11/17 09:37 Alkaline Phosphatase 108 Units/L (34-104) H 12/11/17 09:37 B-Natriuretic Peptide 118 pg/mL (Less than 100) H 12/09/17 19:47 Serum Total Protein 5.9 g/dL (6.4-8.9) L 12/11/17 09:37 Albumin 2.9 g/dL (3.5-5.7) L 12/11/17 09:37 Albumin/Globulin Ratio 1.0 (1.1-2.2) L 12/11/17 09:37 Amylase < 10 Units/L (29-103) L 12/11/17 09:37 Lipase < 3 Units/L (11-82) L 12/11/17 09:37 - Clinical Findings Intake & Output: Intake & Output 12/10/17 12/11/17 12/11/17 23:59 07:59 15:59 Intake Total 1000 / 1000 650 / 650 2842 / 2842 Output Total 0 / 0 Balance 1000 / 1000 650 / 650 2842 / 2842 Weight 90.3 kg Consult Discharge Plan - Plan Referrals: Jorden Crandall MD [Primary Care Provider] -
[2017-12-11] MEDS: Potassium Chloride Elixir 20 MEQ/15 ML UDC PO SCH ×2 (12:02→21:15)
[2017-12-11] MEDS: Insulin LISPRO 300 UNITS/3 ML VIAL SQ SCH ×2 (12:03→16:18)
[2017-12-11] MEDS ORDERED: Ibuprofen 400 MG TABLET PO ONE (12:05)
[2017-12-11] MEDS ORDERED: Ondansetron 4 MG/2 ML VIAL IVP PRN (19:19)
[2017-12-11] MEDS: traZODone 50 MG TABLET PO SCH (21:15)
[2017-12-11] MEDS: BuPROPion XL (24 HR) 150 MG TABLET PO SCH (21:16)
[2017-12-11] MEDS: Gabapentin 300 MG CAPSULE PO SCH (21:16)
[2017-12-11] MEDS: Azithromycin 500 MG in D5% in Water 250 ML IVPB SCH (23:03)
[2017-12-12] MEDS: 0.9 % Sodium Chloride 1,000 ML IVC SCH ×2 (01:22→11:22)
[2017-12-12] MEDS: Ipratropium/Albuterol Neb 3 ML IH SCH ×2 (03:53→07:55)
[2017-12-12] MEDS: Acetaminophen 325 MG TABLET PO PRN (04:08)
[2017-12-12] MEDS: MethylPREDNISolone 40 MG/ML VIAL IVP SCH (05:24)
[2017-12-12] MEDS: Insulin LISPRO 300 UNITS/3 ML VIAL SQ SCH ×3 (07:39→16:26)
[2017-12-12] MEDS: Potassium Chloride Elixir 20 MEQ/15 ML UDC PO SCH (07:48)
[2017-12-12] MEDS: tiZANidine 4 MG TABLET PO SCH ×2 (07:49→21:24)
[2017-12-12] MEDS: Topiramate 25 MG TABLET PO SCH (07:49)
[2017-12-12] MEDS: cefTRIAXone 1,000 MG in Water for inj. (sterile) 20 ML 10 ML IVP SCH (07:49)
[2017-12-12] MEDS: MORPHINE SULFATE IT SCH (07:55)
[2017-12-12 09:17] LABS: Hematocrit 25.3 % (35.3-44.9); Hemoglobin 7.4 g/dL (11.5-15.4); Mean Corpuscular HGB Conc 29.2 g/dL (31.6-35.5); Mean Corpuscular Hemoglobin 22.8 pg (28.0-33.3); Mean Corpuscular Volume 78.1 fL (83.0-100.0); Mean Platelet Volume 8.6 fL (9.4-12.4); Nucleated Red Blood Cells 0.2 /100 WBC (0); Platelet Count 506 K/mcL (140-400); Red Blood Count 3.24 M/mcL (3.82-4.97); Red Cell Distribution Width 18.8 % (11.5-14.5)
--- NOTE | 2017-12-12 09:37 | Pulmonology Progress Note ---
Date of Encounter: 12/12/17 Time of Encounter: 09:30 Assessment and Plan (1) Pneumonia Current Visit: Yes Status: Acute To continue the current regimen of antibiotics .To continue steroids Qualifiers: Pneumonia type: due to unspecified organism Laterality: right Lung location: unspecified part of lung Qualified Code(s): J18.9 - Pneumonia, unspecified organism (2) Hilar mass Current Visit: Yes Status: Acute Patient will need EBUS to biopsy of right hilar mass more likely consistent with primary bronchogenic carcinoma .Patient is agreeable for EBUS TBNA for the right hilar mass will put her tomorrow schedule. To keep NPO after midnight. Subjective Principal diagnosis: Pneumonia with hilar mass Interval history: Is doing well feeling better , less shortness of breadth not much cough with sputum production. Denies any chest pain or tightness denies any fever or chills . Objective PUL Vital signs: Last Vital Signs Temp 98.1 F 12/12/17 07:15 Pulse 111 12/12/17 07:15 Resp 15 12/12/17 07:55 BP 160/106 12/12/17 07:15 Pulse Ox 95 12/12/17 07:55 Auscultation: bilateral: clear Results - Laboratory Findings CBC and BMP: 12/12/17 09:01 12/12/17 09:01 Abnormal lab findings: Abnormal lab results WBC 18.2 K/mcL (4.3-11.1) H 12/12/17 09:01 RBC 3.24 M/mcL (3.82-4.97) L 12/12/17 09:01 Hgb 7.4 g/dL (11.5-15.4) L 12/12/17 09:01 Hct 25.3 % (35.3-44.9) L 12/12/17 09:01 MCV 78.1 fL (83.0-100.0) L 12/12/17 09:01 MCH 22.8 pg (28.0-33.3) L 12/12/17 09:01 MCHC 29.2 g/dL (31.6-35.5) L 12/12/17 09:01 RDW 18.8 % (11.5-14.5) H 12/12/17 09:01 Plt Count 506 K/mcL (140-400) H 12/12/17 09:01 MPV 8.6 fL (9.4-12.4) L 12/12/17 09:01 Neutrophils # 15.9 K/mcL (1.6-8.9) H 12/11/17 09:37 Nucleated RBCs/100 WBC 0.2 /100 WBC (0) H 12/12/17 09:01 Sodium 128 mEq/L (136-145) L 12/11/17 09:37 Potassium 3.3 mEq/L (3.5-5.1) L 12/11/17 09:37 Glucose 200 mg/dL (70-105) H 12/11/17 09:37 POC Glucose 236 mg/dL (70-99) H 12/10/17 18:07 Serum Osmolality 270 mOsm/kg (280-300) L 12/10/17 08:06 Calculated Osmolality 270 (280-300) L 12/11/17 09:37 Iron < 10 mcg/dL (50-170) L 12/10/17 05:35 Total Bilirubin 0.2 mg/dL (0.3-1.0) L 12/11/17 09:37 AST 5 Units/L (13-39) L 12/11/17 09:37 ALT 5 Units/L (7-52) L 12/11/17 09:37 Alkaline Phosphatase 108 Units/L (34-104) H 12/11/17 09:37 B-Natriuretic Peptide 118 pg/mL (Less than 100) H 12/09/17 19:47 Serum Total Protein 5.9 g/dL (6.4-8.9) L 12/11/17 09:37 Albumin 2.9 g/dL (3.5-5.7) L 12/11/17 09:37 Albumin/Globulin Ratio 1.0 (1.1-2.2) L 12/11/17 09:37 Amylase < 10 Units/L (29-103) L 12/11/17 09:37 Lipase < 3 Units/L (11-82) L 12/11/17 09:37 - Clinical Findings Intake & Output: Intake & Output 12/11/17 12/12/17 12/12/17 23:59 07:59 15:59 Intake Total 1120 / 1120 1260 / 1260 Output Total 0 / 0 0 / 0 Balance 1120 / 1120 1260 / 1260 Weight 90.6 kg Consult Discharge Plan - Plan Referrals: Jorden Crandall MD [Primary Care Provider] -
[2017-12-12 09:46] LABS: Blood Urea Nitrogen 9 mg/dL (6-20); Carbon Dioxide 20 mEq/L (23-29); Chloride 104 mEq/L (98-107); Sodium 130 mEq/L (136-145)
[2017-12-12 09:47] LABS: BUN/Creatinine Ratio 12 (6-26); Calcium 8.4 mg/dL (8.6-10.3); Glucose 247 mg/dL (70-105); Osmolality,Calculated 277 (280-300); eGFR For Non-African Americans > 60 (> 60)
[2017-12-12 09:52] LABS: Anisocytosis 1+ (Not Present); Hypochromasia Present (Not Present); Lymphocytes # 1.8 K/mcL (0.6-4.6); Monocytes # 0.4 K/mcL (0.0-1.3); Toxic Granulation Present (Not Present)
[2017-12-12] MEDS ORDERED: *HR* Metoprolol 5 MG/5 ML VIAL IVP ONE (10:45)
[2017-12-12] MEDS ORDERED: Ipratropium/Albuterol Neb 3 ML IH PRN (10:47)
--- NOTE | 2017-12-12 14:22 | Internal Med Progress Note ---
Hospitalist Progress Note - Encounter Date of Encounter: 12/12/17 Time of Encounter: 10:00 - Subjective Interval History: Patient is feeling better, patient stated she was placed on multiple antidepressant medication to help with her pain before before placing her pain pump she is willing to cut back on her antipsychotic medication, patient stated that her pain is under good control,especially with her hyponatremia . Patient denies any suicidal or homicidal ideation, patient is complaining of decreased appetite hard to sleep - Exam Vitals: Temp Pulse Resp BP Pulse Ox 97.8 F 103 15 143/93 95 12/12/17 14:17 12/12/17 14:17 12/12/17 14:17 12/12/17 14:17 12/12/17 14:17 Exam: as above - Assessment and Plan (1) Mass of adrenal gland Current Visit: Yes Status: Acute (2) Hypokalemia Current Visit: Yes Status: Acute (3) Hyponatremia Current Visit: Yes Status: Acute (4) Pneumonia Current Visit: Yes Status: Acute (5) Tachycardia Current Visit: Yes Status: Acute (6) Community acquired pneumonia Current Visit: No Status: Acute - Summary of Assessment and Plan Summary of Assessment and Plan: I discussed with patient about her anemia, patient denies any blood in stool at all no black stool, she denies any abdominal pain, awaiting the stool for occult blood, close monitoring of her H&H, continue iron replacement, for her sinus tachycardia we will check cardiac echo as well as add small dose of beta palak, close monitoring of electrolytes, continue current antibiotic, taper down steroids, with her poor appetite, poor sleep as well as history of depression, may consider remeron as a better agent, counseling patient about hyponatremia her sodium is better with water restriction, patient used to drink up to 5 L of water daily, may consider tapering down on Wellbutrin as well as Cymbalta. Awaiting pulmonary for bronchoscopy to be done, possible discharge after bronchoscopy to follow-up as an outpatient was pulmonary in next 24-hour - Time Spent with Patient Total time spent is greater than 50% in coordination of care (as documented) at patient's floor/unit and/or counseling patient: Greater than 35 minutes Internal Medicine: Result - Labs CBC & Chem 7: 12/12/17 09:01 12/12/17 09:01 Labs: Short CBC 12/12/17 Range/Units 09:01 WBC 18.2 H (4.3-11.1) K/mcL Hgb 7.4 L (11.5-15.4) g/dL Hct 25.3 L (35.3-44.9) % Plt Count 506 H (140-400) K/mcL Neutrophils # 16.0 H (1.6-8.9) K/mcL BMP 12/12/17 09:01 Sodium 130 L Potassium 5.0 D Chloride 104 Carbon Dioxide 20 L BUN 9 Creatinine 0.74 Glucose 247 H Calcium 8.4 L Consult Discharge Plan - Plan Referrals: Jorden Crandall MD [Primary Care Provider] - Exam - Vital Signs Vital signs: Initial Vital Signs Temp Pulse Resp BP Pulse Ox 99.6 F 117 22 141/86 98 12/09/17 19:21 12/09/17 19:21 12/09/17 19:21 12/09/17 19:21 12/09/17 19:21 Vital Signs - Last 8 Hours Temp Pulse Resp BP Pulse Ox 12/12/17 14:17 97.8 F 103 15 143/93 95 12/12/17 10:42 97.7 F 107 15 138/88 96 12/12/17 07:55 15 95 12/12/17 07:15 98.1 F 111 15 160/106 95 Intake and Output 12/11/17 12/12/17 12/12/17 23:59 07:59 15:59 Intake Total 1120 / 1120 1260 / 1260 1515 / 1515 Output Total 0 / 0 0 / 0 Balance 1120 / 1120 1260 / 1260 1515 / 1515 Intake: IV Fluids 1000 / 1000 1260 / 1260 1275 / 1275 0.9 % Sodium Chloride 1,000 ML 1000 / 1000 1000 / 1000 1275 / 1275 @ 125 mls/hr IVC .Q8H [facility] Rx#: [id number] Rocephin 1,000 MG In Water for inj. (sterile) 10 ML @ 600 mls/ hr IVP DAILY [facility] Rx#:[id number] Zithromax 500 mg In Dextrose 5% 250 / 250 250 ML @ 252 mls/hr IVPB Q24H [facility] Rx#:[id number] Oral 120 / 120 0 / 0 240 / 240 Output: Urine 0 / 0 0 / 0 Other: Meal Dinner Lunch Percent of Meal Consumed 100% 50% Weight 90.6 kg Blood Glucose* 148 134 139 Patient Weight 12/12/17 23:59 Weight 90.6 kg - General Appearance General appearance: obese, fatigue EENT: hearing intact Neck: no JVD Respiratory: no kyphosis, no scoliosis Cardiology: no murmurs, no rub, no gallops, no edema, regular rate, regular rhythm, normal S1, normal S2 Gastrointestinal: normoactive bowel sounds, no tenderness, no guarding, no organomegaly Integumentary: no rash, warm and dry Neurologic: no focal deficit, no asterixis, alert and oriented x3, reflexes 2+ and symmetric, gait normal, strength 5/5 (4) Pneumonia Qualifiers: Pneumonia type: due to unspecified organism Laterality: right Lung location : unspecified part of lung Qualified Code(s): J18.9 - Pneumonia, unspecified organism (6) Community acquired pneumonia Qualifiers: Laterality: right Lung location: middle lobe of lung Qualified Code(s): J18.1 - Lobar pneumonia, unspecified organism
[2017-12-12] MEDS: Ascorbic Acid 500 MG TABLET PO SCH (16:27)
[2017-12-12] MEDS ORDERED: Mirtazapine 15 MG TABLET PO SCH (21:00)
[2017-12-12] MEDS: BuPROPion XL (24 HR) 150 MG TABLET PO SCH (21:24)
[2017-12-12] MEDS: Gabapentin 300 MG CAPSULE PO SCH (21:25)
[2017-12-12] MEDS: Azithromycin 500 MG in D5% in Water 250 ML IVPB SCH (23:48)
[2017-12-13 01:39] LABS: Prothrombin Time 11.1 Seconds (9.4-12.1)
[2017-12-13 01:42] LABS: Activated Partial Thrombo Time 32.5 Seconds (26.0-36.0)
[2017-12-13 01:46] LABS: Basophils % 0.3 %; Eosinophils % 0.2 %; Hematocrit 24.2 % (35.3-44.9); Hemoglobin 7.1 g/dL (11.5-15.4); Immature Granulocytes % 6.5 % (0-4); Lymphocytes # 3.7 K/mcL (0.6-4.6); Lymphocytes % 24.8 %; Mean Corpuscular HGB Conc 29.3 g/dL (31.6-35.5); Mean Corpuscular Volume 78.3 fL (83.0-100.0); Mean Platelet Volume 8.7 fL (9.4-12.4); Monocytes % 7.1 %; Platelet Count 507 K/mcL (140-400); Red Blood Count 3.09 M/mcL (3.82-4.97); Red Cell Distribution Width 19.1 % (11.5-14.5); Segmented Neutrophils % 61.1 %
[2017-12-13 01:55] LABS: BUN/Creatinine Ratio 12 (6-26); Blood Urea Nitrogen 10 mg/dL (6-20); Calcium 8.7 mg/dL (8.6-10.3); Carbon Dioxide 25 mEq/L (23-29); Chloride 106 mEq/L (98-107); Glucose 87 mg/dL (70-105); Osmolality,Calculated 278 (280-300); Potassium 4.4 mEq/L (3.5-5.1); Sodium 135 mEq/L (136-145); eGFR For Non-African Americans > 60 (> 60)
[2017-12-13 03:00] LABS: Anisocytosis 1+ (Not Present)
[2017-12-13 03:01] LABS: Hypochromasia Present (Not Present); Microcytosis Present (Not Present); Platelet Estimate Increased (Normal); Toxic Granulation Present (Not Present)
[2017-12-13] MEDS: Acetaminophen 325 MG TABLET PO PRN (04:31)
[2017-12-13] MEDS ORDERED: *HR* Rocuronium Bromide 50 MG/5 ML VIAL ONE (07:17)
[2017-12-13] MEDS ORDERED: Lidocaine -MPF 2% 2 ML VIAL ONE (07:17)
[2017-12-13] MEDS ORDERED: Lidocaine -MPF 4% 5 ML AMPUL ONE (07:17)
[2017-12-13] MEDS ORDERED: *HR* Propofol 200 MG/20 ML VIAL IVP ONE (07:17)
[2017-12-13] MEDS ORDERED: Dexamethasone 4 MG/ML VIAL ONE (07:17)
[2017-12-13] MEDS ORDERED: *HR* Succinylcholine 200 MG/10 ML VIAL IVP ONE (07:17)
[2017-12-13] MEDS ORDERED: Ondansetron 4 MG/2 ML VIAL ONE (07:17)
[2017-12-13] MEDS ORDERED: *HR* FentaNYL (PF) 100 MCG/2 ML VIAL ONE (07:17)
[2017-12-13] MEDS ORDERED: *HR* Midazolam HCl 2 MG/2 ML VIAL ONE (07:17)
--- NOTE | 2017-12-13 08:21 | Anesthesia Evaluation PreOp ---
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: Other (migraine MORALES's, chronic pain) Other Medical History: Diabetes Type II, GERD, Other (anxiety/depression, anemia ) Anesthesia History: No Prior Anesthetic Complications, Past Anesthesia Alcohol Use: occasionally Drug use: none Medications and Allergies BuPROPion XL (24 HR) [Wellbutrin Xl] 300 mg PO HS 03/12/15 [History] Duloxetine HCl [Cymbalta] 60 mg PO HS 03/12/15 [History] Estrogens, Conjugated [Premarin] 0.625 mg PO QAM 03/12/15 [History] Gabapentin [Neurontin] 300 mg PO HS 03/12/15 [History] L.acidoph,Paracasei, B.lactis [Probiotic] 1 cap PO HS 03/12/15 [History] Montelukast [Singulair] 10 mg PO HS 03/12/15 [History] Omeprazole [PriLOSEC] 20 mg PO HS 03/12/15 [History] Tizanidine HCl [Zanaflex] 4 mg PO BID 03/12/15 [History] Topiramate [Topamax] 50 mg PO QAM 03/12/15 [History] traZODone [TraZODone] 50 mg PO HS 03/12/15 [History] DULoxetine [Cymbalta] 30 mg PO QAM 12/10/17 [History] Morphine Sulfate/Pf [Morphine IntraThecdal Pump] 7.2 mg IT DAILY 12/10/17 [ History] 3 Allergy/AdvReac Type Severity Reaction Status Date / Time Amoxicillin Allergy See Verified 03/12/15 13:07 Comments sulfamethoxazole Allergy See Verified 03/12/15 13:07 [From Bactrim] Comments trimethoprim [From Bactrim] Allergy See Verified 03/12/15 13:07 Comments - Meds/Allergy Pre-op Review Medications Reviewed: Yes Allergies Reviewed: Yes Beta Blockers on Current Med List: No Anesthesia Results - Labs 12/13/17 00:58 12/13/17 00:58 - Imaging EKG: report reviewed (09/17/2017 SINUS RHYTHM) Chest x-ray: other (12/09/[address] IMPRESSION: 1. No scan evidence for pulmonary embolus. 2. 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 with postobstructive airspace disease.) Anesthesia Exam Vital Signs/O2 Sat/Glucose, Most Recent Temp Pulse Resp BP Pulse Ox 97.8 F 102 16 150/83 92 12/13/17 07:46 12/13/17 07:46 12/13/17 07:46 12/13/17 07:46 12/13/17 07:46 Blood Glucose* 108 Height: 5'7''/1.7m Weight: 199 lbs/90.4 kg NPO (# of Hours): 8 Pain Scale: 0 Pain Scale Used: Numeric (1 - 10) - HEENT Pupil (Motor): EOMI Mallampati: II Teeth: Normal Oral Opening: Greater than 3 - MATTRESS RENOVATOR LOC: Oriented MATTRESS RENOVATOR Motor: Normal RUE, Normal LUE, Normal RLE, Normal LLE, Normal Face MATTRESS RENOVATOR Sensory: Normal: RUE, LUE, RLE, LLE, Face - Cardiac Rhythm: Regular Murmur: None - Pulmonary Breath Sounds: bilateral Clear (decreased BS right base) Respiratory Effort: Symmetrical Anesthesia Assess/Plan ASA Score: 3 Modified [place] Scale for Level of Consciousness: Cooperative, oriented, and tranquil Anesthetic Plan: General Monitoring Plan: Standard Monitors Recovery Plan: PACU
[2017-12-13] MEDS: Insulin LISPRO 300 UNITS/3 ML VIAL SQ SCH ×2 (08:22→13:17)
[2017-12-13] MEDS ORDERED: Ringers Solution, Lactated 1,000 ML IVC SCH ×2 (09:00→09:30)
[2017-12-13] MEDS ORDERED: predniSONE 20 MG TABLET PO SCH (09:00)
[2017-12-13] MEDS ORDERED: Naloxone 0.4 MG/ML INJ IVP PRN (09:30)
[2017-12-13] MEDS ORDERED: Ondansetron 4 MG/2 ML VIAL IVP ONE (09:30)
[2017-12-13] MEDS ORDERED: *HR* Promethazine 25 MG/ML VIAL IVP PRN (09:30)
[2017-12-13] MEDS ORDERED: Albuterol 2.5 MG/3 ML NEBULIZER IH ONE (09:30)
[2017-12-13] MEDS ORDERED: *HR* Morphine 2 MG/ML SYRINGE IVP PRN (09:30)
[2017-12-13] MEDS ORDERED: *HR* Meperidine 25 MG/ML SYRINGE IVP PRN (09:30)
--- NOTE | 2017-12-13 10:13 | Anesthesia Evaluation Post Op ---
Date of Encounter: 12/13/17 Time of Encounter: 10:12 - Vital Signs Vital Signs: Vital Signs/O2 Sat, Most Current Temp Pulse Resp BP Pulse Ox 98.1 F 93 18 148/92 96 12/13/17 10:03 12/13/17 10:03 12/13/17 10:03 12/13/17 10:03 12/13/17 10:03 - Lungs Lungs: Clear Ascult./Percussion - Airway Airway: Non-obstructed - Cardiovascular Regular Rate - Mental Status Mental Status: Alert & Oriented, Answers Appropriately - Pain Pain Scale: 1 Pain Scale used: Numeric (1 - 10) - Nausea Vomiting Nausea Vomiting: Not Present - Hydration Hydration: NPO, Has not voided Notes: 12/13/17 10:13 c/o of MORALES - Discharge PostOp Status: Transfer Patient to floor
[2017-12-13 10:19] LABS: Source of Body Fluid RLL BAL
--- NOTE | 2017-12-13 10:34 | Pulmonology Progress Note ---
<DanielJeremie payne M - Last Filed: 12/13/17 13:38> Date of Encounter: 12/13/17 Objective PUL Vital signs: Last Vital Signs Temp 98.1 F 12/13/17 10:59 Pulse 91 12/13/17 10:59 Resp 16 12/13/17 11:11 BP 144/89 12/13/17 10:59 Pulse Ox 100 12/13/17 11:11 Results - Laboratory Findings CBC and BMP: 12/13/17 10:57 12/13/17 00:58 PT/INR, D-dimer PT 11.1 Seconds (9.4-12.1) 12/13/17 00:58 Abnormal lab findings: Abnormal lab results WBC 14.7 K/mcL (4.3-11.1) H 12/13/17 00:58 RBC 3.09 M/mcL (3.82-4.97) L 12/13/17 00:58 Hgb 8.2 g/dL (11.5-15.4) L 12/13/17 10:57 Hct 27.8 % (35.3-44.9) L 12/13/17 10:57 MCV 78.3 fL (83.0-100.0) L 12/13/17 00:58 MCH 23.0 pg (28.0-33.3) L 12/13/17 00:58 MCHC 29.3 g/dL (31.6-35.5) L 12/13/17 00:58 RDW 19.1 % (11.5-14.5) H 12/13/17 00:58 Plt Count 507 K/mcL (140-400) H 12/13/17 00:58 MPV 8.7 fL (9.4-12.4) L 12/13/17 00:58 Immature Gran % 6.5 % (0-4) H 12/13/17 00:58 Neutrophils # 9.0 K/mcL (1.6-8.9) H 12/13/17 00:58 Nucleated RBCs/100 WBC 0.2 /100 WBC (0) H 12/12/17 09:01 Toxic Granulation Present (Not Present) A 12/13/17 00:58 Platelet Estimate Increased (Normal) H 12/13/17 00:58 Hypochromasia Present (Not Present) A 12/13/17 00:58 Anisocytosis 1+ (Not Present) A 12/13/17 00:58 Microcytosis Present (Not Present) A 12/13/17 00:58 Sodium 135 mEq/L (136-145) L 12/13/17 00:58 POC Glucose 175 mg/dL (70-99) H 12/13/17 11:45 Serum Osmolality 270 mOsm/kg (280-300) L 12/10/17 08:06 Calculated Osmolality 278 (280-300) L 12/13/17 00:58 Iron < 10 mcg/dL (50-170) L 12/10/17 05:35 Total Bilirubin 0.2 mg/dL (0.3-1.0) L 12/11/17 09:37 AST 5 Units/L (13-39) L 12/11/17 09:37 ALT 5 Units/L (7-52) L 12/11/17 09:37 Alkaline Phosphatase 108 Units/L (34-104) H 12/11/17 09:37 B-Natriuretic Peptide 118 pg/mL (Less than 100) H 12/09/17 19:47 Serum Total Protein 5.9 g/dL (6.4-8.9) L 12/11/17 09:37 Albumin 2.9 g/dL (3.5-5.7) L 12/11/17 09:37 Albumin/Globulin Ratio 1.0 (1.1-2.2) L 12/11/17 09:37 Prealbumin 9.4 mg/dL (17.0-34.0) L 12/12/17 09:01 Amylase < 10 Units/L (29-103) L 12/11/17 09:37 Lipase < 3 Units/L (11-82) L 12/11/17 09:37 - Clinical Findings Intake & Output: Intake & Output 12/12/17 12/13/17 12/13/17 23:59 07:59 15:59 Intake Total 120 / 120 250 / 250 610 / 610 Output Total 900 / 900 Balance 120 / 120 -650 / -650 610 / 610 Weight 90.4 kg Consult Discharge Plan - Plan Referrals: Jorden Crandall MD [Primary Care Provider] - - Attending Attestation I examined this patient and my medical decision-making was reviewed with the Resident Physician. I agree with the documented findings, disposition and treatment plan as described except to the extent set forth below. Patient seen and examined. Labs, radiology, chart personally reviewed. 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 Pulmonary: Acceptable oxygenation and ventilation. Discussed with patient this morning about bronchoscopy which was done and from pulmonary standpoint she can be discharged home on follow-up on the results as outpatient and patient can follow-up in 3-4 weeks in the clinic if patient would be discharged home. <David Manuel - Last Filed: 12/13/17 15:42> Date of Encounter: 12/13/17 Time of Encounter: 10:00 Assessment and Plan (1) Pneumonia Current Visit: Yes Status: Acute - He has a history of recurrent pneumonias. She came to the ED shortness of breath and pleuritic chest pain. - CTA showed confluent soft tissue opacity in the right hilum contiguous with disease in the middle lobe and right lower lobe. -Currently being treated for community acquired pneumonia, day 5 of Rocephin and Z-Manohar. WBC trending down 18.2 -> 16.6 -> 14.7 - Patient is s/p EBUS for hilar mass . Continue to monitor. 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 Biopsy Results pending. - f/u pulmonology as an outpatient Subjective Principal diagnosis: Pneumonia with hilar mass Interval history: Ms. Dhillon is a 57-year-old female who is currently being seen by pulmonology for her right hilar mass. Patient underwent endobronchial ultrasound bronchoscopy procedure (EBUS) this morning and tolerated the procedure very well, denies any acute distress or shortness of breath. She is hemodynamically stable currently on 2 L of nasal cannula satting at 100%. Biopsy results are awaited She endorsed some headache after the procedure and her head CT was negative for any acute intracranial abnormality. Objective PUL Vital signs: Last Vital Signs Temp 98 F 12/13/17 10:31 Pulse 97 12/13/17 10:31 Resp 16 12/13/17 10:31 BP 143/92 12/13/17 10:31 Pulse Ox 90 12/13/17 10:31 General appearance: no acute distress (s/p bronchoscopy) Effort: normal Auscultation: bilateral: wheezes Cardiovascular: regular rate and rhythm Gastrointestinal: soft, non-tender, non-distended Results - Laboratory Findings CBC and BMP: 12/13/17 10:57 12/13/17 00:58 PT/INR, D-dimer PT 11.1 Seconds (9.4-12.1) 12/13/17 00:58 Abnormal lab findings: Abnormal lab results WBC 14.7 K/mcL (4.3-11.1) H 12/13/17 00:58 RBC 3.09 M/mcL (3.82-4.97) L 12/13/17 00:58 Hgb 7.1 g/dL (11.5-15.4) L 12/13/17 00:58 Hct 24.2 % (35.3-44.9) L 12/13/17 00:58 MCV 78.3 fL (83.0-100.0) L 12/13/17 00:58 MCH 23.0 pg (28.0-33.3) L 12/13/17 00:58 MCHC 29.3 g/dL (31.6-35.5) L 12/13/17 00:58 RDW 19.1 % (11.5-14.5) H 12/13/17 00:58 Plt Count 507 K/mcL (140-400) H 12/13/17 00:58 MPV 8.7 fL (9.4-12.4) L 12/13/17 00:58 Immature Gran % 6.5 % (0-4) H 12/13/17 00:58 Neutrophils # 9.0 K/mcL (1.6-8.9) H 12/13/17 00:58 Nucleated RBCs/100 WBC 0.2 /100 WBC (0) H 12/12/17 09:01 Toxic Granulation Present (Not Present) A 12/13/17 00:58 Platelet Estimate Increased (Normal) H 12/13/17 00:58 Hypochromasia Present (Not Present) A 12/13/17 00:58 Anisocytosis 1+ (Not Present) A 12/13/17 00:58 Microcytosis Present (Not Present) A 12/13/17 00:58 Sodium 135 mEq/L (136-145) L 12/13/17 00:58 POC Glucose 108 mg/dL (70-99) H 12/13/17 05:55 Serum Osmolality 270 mOsm/kg (280-300) L 12/10/17 08:06 Calculated Osmolality 278 (280-300) L 12/13/17 00:58 Iron < 10 mcg/dL (50-170) L 12/10/17 05:35 Total Bilirubin 0.2 mg/dL (0.3-1.0) L 12/11/17 09:37 AST 5 Units/L (13-39) L 12/11/17 09:37 ALT 5 Units/L (7-52) L 12/11/17 09:37 Alkaline Phosphatase 108 Units/L (34-104) H 12/11/17 09:37 B-Natriuretic Peptide 118 pg/mL (Less than 100) H 12/09/17 19:47 Serum Total Protein 5.9 g/dL (6.4-8.9) L 12/11/17 09:37 Albumin 2.9 g/dL (3.5-5.7) L 12/11/17 09:37 Albumin/Globulin Ratio 1.0 (1.1-2.2) L 12/11/17 09:37 Prealbumin 9.4 mg/dL (17.0-34.0) L 12/12/17 09:01 Amylase < 10 Units/L (29-103) L 12/11/17 09:37 Lipase < 3 Units/L (11-82) L 12/11/17 09:37 - Clinical Findings Intake & Output: Intake & Output 12/12/17 12/13/17 12/13/17 23:59 07:59 15:59 Intake Total 120 / 120 250 / 250 Output Total 900 / 900 Balance 120 / 120 -650 / -650 Weight 90.4 kg
[2017-12-13] MEDS: cefTRIAXone 1,000 MG in Water for inj. (sterile) 20 ML 10 ML IVP SCH (10:49)
[2017-12-13] MEDS ORDERED: Ibuprofen 600 MG TABLET PO PRN (10:57)
[2017-12-13] MEDS: Topiramate 25 MG TABLET PO SCH (11:12)
[2017-12-13] MEDS: Ascorbic Acid 500 MG TABLET PO SCH (11:12)
[2017-12-13] MEDS: tiZANidine 4 MG TABLET PO SCH (11:12)
[2017-12-13] MEDS: MORPHINE SULFATE IT SCH (11:13)
[2017-12-13 11:14] LABS: Hematocrit 27.8 % (35.3-44.9); Hemoglobin 8.2 g/dL (11.5-15.4)
[2017-12-13 13:54] VITALS: BP 147/91
[2017-12-13] MEDS ORDERED: D5% in Water 1,000 ML IVC PRN (14:52)
[2017-12-13] MEDS ORDERED: *HR* Dextrose 50 % in Water (Syg) 50 ML SYRINGE IVP PRN (14:52)
[2017-12-13] MEDS ORDERED: Dextrose Gel 15 GM/37.5 ML TUBE PO PRN ×2 (14:52)
--- NOTE | 2017-12-13 15:51 | Internal Med Progress Note ---
Hospitalist Progress Note - Encounter Date of Encounter: 12/13/17 Time of Encounter: 13:00 - Subjective Interval History: Pt was seen and assessed at 1330. She is drowsy from all day testing and sedation from bronch. Patient states that she is feeling well and is ready to go home tomorrow. She states that she has a headache, normal for her and in no way different than her normal headaches. She denies chest pain, nausea, vomiting , diarrhea, shortness of breath, or peripheral edema. Pt is insistent that she is going home tomorrow. - Exam Vitals: Temp Pulse Resp BP Pulse Ox 97.7 F 74 15 147/91 98 12/13/17 13:52 12/13/17 13:52 12/13/17 13:52 12/13/17 13:52 12/13/17 13:52 Exam: General: Pt resting quietly on bed, no distress. Skin: pwd, no rashes, lesions, redness Neurological: Pt is alert and awake, oriented x 3, Speech is clear, PERRLA, EOMI , no nystagmus, no pronator drift. strength equal x 4 extremities HEENT: mucous mumbranes moist, no conjuctival pallor Neck: supple, no tracheal deviation, no lymphadenopathy, tenderness, no thyromegaly Heart: S1S2 heard without gallops, clicks, murmurs, no bradycardia or tachycardia, pt has no peripheral edema, pedal and radial pulses palpable bilaterally. Lungs: clear throughout without wheezing, rales, or ronchi, respirations are unlabored Abdomen: soft and non tender with bowel sound present, no hepatomegaly. Psych: Normal affect with good eye contact - Assessment and Plan (1) Community acquired pneumonia Current Visit: No Status: Acute Assessment and Plan: Recurrent pneumonia. Currently being treated for community-acquired pneumonia. She is on day 5 of Rocephin and Z-Manohar, will continue. Leukocytosis is improving today, 14.2. Patient without other signs of sirs or sepsis. Bronchoscopy today for hilar mass Continue 02 prn Continue IV antibiotics Monitor labs and vitals. (2) Pneumonia Current Visit: Yes Status: Acute Assessment and Plan: Plan as above (3) Hypokalemia Current Visit: Yes Status: Acute Assessment and Plan: Resolved. Continue to monitor labs. (4) Hyponatremia Current Visit: Yes Status: Acute Assessment and Plan: Improving. Sodium is 135 today. Patient is doing well with fluid restriction. Continue fluid restriction and continue to monitor labs. (5) Tachycardia Current Visit: Yes Status: Acute Assessment and Plan: Patient has been placed on a beta palak, patient has had no tachycardia this afternoon, rate in the 70s. Echocardiogram shows LVEF of 65%, mild LV DD, mild TR. Continue telemetry Continue beta palak Monitor vitals per admission order. Echocardiogram 12/13/17 08:22 Impressions: LVEF 65%. Normal LV chamber size, wall thickness and function. Mild left ventricular diastolic dysfunction. Normal right ventricular structure and function. Mild tricuspid regurgitation. (6) Mass of adrenal gland Current Visit: Yes Status: Acute Assessment and Plan: Noted on CT abdomen and pelvis dated 12/10. Patient noted 1.3 cm mass seen within the left adrenal gland, may represent an adenoma, however cannot exclude possibility of malignancy. Consult surgery in the a.m. for evaluation of mass. DVT Prophylaxis: SCDs ordered. - Time Spent with Patient Total time spent is greater than 50% in coordination of care (as documented) at patient's floor/unit and/or counseling patient: less than 15 minutes Plan of Care Discussed with: patient Internal Medicine: Result - Labs CBC & Chem 7: 12/13/17 10:57 12/13/17 00:58 Labs: Short CBC 12/13/17 12/13/17 Range/Units 00:58 10:57 WBC 14.7 H (4.3-11.1) K/mcL Hgb 7.1 L 8.2 L (11.5-15.4) g/dL Hct 24.2 L 27.8 L (35.3-44.9) % Plt Count 507 H (140-400) K/mcL Neutrophils # 9.0 H (1.6-8.9) K/mcL BMP 12/13/17 00:58 Sodium 135 L Potassium 4.4 Chloride 106 Carbon Dioxide 25 BUN 10 Creatinine 0.81 Glucose 87 Calcium 8.7 - ABG Interpretation ABG results: PT/INR, D-dimer PT 11.1 Seconds (9.4-12.1) 12/13/17 00:58 - Impressions Impressions Abdomen/Pelvis CT 12/10/17 13:00 IMPRESSION: Stable right hilar mass likely secondary to malignancy with developing right-sided pleural effusion and consolidation within the right lower lobe may be secondary to postobstructive pneumonia. 1.3 cm mass seen within the left adrenal gland may represent an adenoma however cannot exclude the possibility of malignancy. D/ / 12/10/2017 13:44:14 [facility] Provider: En Altman MD Echocardiogram 12/13/17 08:22 Impressions: LVEF 65%. Normal LV chamber size, wall thickness and function. Mild left ventricular diastolic dysfunction. Normal right ventricular structure and function. Mild tricuspid regurgitation. Head CT 12/13/17 11:06 IMPRESSION: No acute intracranial abnormality. D/ / 12/13/2017 12:31:48 Zohreh Junior MD / [facility] Interpreting Provider: Zohreh Junior MD Consult Discharge Plan - Plan Referrals: Jorden Crandall MD [Primary Care Provider] - (1) Community acquired pneumonia Qualifiers: Laterality: right Lung location: middle lobe of lung Qualified Code(s): J18.1 - Lobar pneumonia, unspecified organism (2) Pneumonia Qualifiers: Pneumonia type: due to unspecified organism Laterality: right Lung location : unspecified part of lung Qualified Code(s): J18.9 - Pneumonia, unspecified organism
--- NOTE | 2017-12-13 15:58 | Electrocardiograph Report ---
[place] [id number] Test Date: 2017-12-09 Pat Name: Aida Dhillon Department: EXAM1 Room: 3A12 Gender: F Hospitalist Physician: : [id number] Requested By: [id number] Order Number: [id number] Reading MD: Brendon Barriga Measurements Intervals [place] Rate: 120 P: 45 AK: 151 QRS: 55 QRSD: 91 T: -4 QT: 308 QTc: 436 Interpretive Statements Sinus tachycardia Borderline T abnormalities, inferior leads Electronically Signed On 12-13-2017 15:57:05 EDT by Brendon Barriga
[2017-12-13 18:17] LABS: Hematocrit 28.4 % (35.3-44.9); Hemoglobin 8.4 g/dL (11.5-15.4)
[2017-12-13 19:22] LABS: Appearance of Body Fluid Cloudy (Clear); Volume of Body Fluid 17 mL
== END 2017-12-13 18:22 | disposition left against medical advice (07) | DRG 194 ==
LOC: EMEROOARM 19:06 → 3ANU 19:06
PROVIDERS: ADMIT Family Medicine; ATTEND Family Medicine